=== PATIENT | female | born 1990 | race Caucasian/White ===

== ENCOUNTER 2017-04-12 15:41 | Emergency (ER) | payer OTHER ==
[2017-04-12 15:47] VITALS: BP 132/73; PULSE 122; TEMP 97.8; BMI 37.5
[2017-04-12] MEDS ORDERED: predniSONE 20 MG TABLET (UD) ONE (16:52)
[2017-04-12] MEDS ORDERED: ONDANSETRON *ODT* 4 MG TABLET ONE (16:52)
[2017-04-12] MEDS ORDERED: ALBUTEROL SO4 2.5/IPRATROPIUM 0.5 INH SOL 3 ML VIAL.NEB. NEB ONE ×2 (16:53→16:54)
[2017-04-12] MEDS ORDERED: ONDANSETRON *ODT* 4 MG TABLET SL ONE (16:54)
[2017-04-12] MEDS ORDERED: predniSONE 20 MG TABLET (UD) PO ONE (16:54)
--- NOTE | 2017-04-12 17:35 | PDOC ---
History of Present Illness - General Chief Complaint: Sore Throat Stated Complaint: SORE THROAT, CONGESTION Time Seen by Provider: 04/12/17 16:44 History Source: Patient Exam Limitations: No Limitations - History of Present Illness Initial Comments: 04/12/17 17:30 Patient came in for evaluation of persistent cough, general body aches, sore throat pain ear pain, and some nausea. was seen by her PMD 3 days ago and prescribed amoxicillin for a pharyngitis. Has been taking the dosage but has not improved. Has also been using [id number] medications including NyQuil and DayQuil with minimal resolved. suffers from asthma and has felt wheezing and chest tightness that is progressively worsening. Timing/Duration: 1 week Severity: mild, moderate Associated Symptoms: reports: cough, fever/chills, loss of appetite, malaise Past History - Travel Traveled outside of the country in the last 30 days: No Close contact w/someone who was outside of country & ill: No - Past Medical History Allergies/Adverse Reactions: Allergies Allergy/AdvReac Type Severity Reaction Status Date / Time ciprofloxacin [From Cipro] Allergy Verified 04/12/17 15:47 ciprofloxacin HCl Allergy Verified 04/12/17 15:47 [From Cipro] Home Medications: Ambulatory Orders No Home Medications 0 dose .ROUTE UTDICT 06/27/13 Ondansetron [Zofran *Odt*] 4 mg SL PRN PRN #14 od.tablet 04/12/17 Prednisone [Deltasone -] 20 mg PO BID #8 tablet 04/12/17 Asthma: Yes - Surgical History Abdominal Surgery: No - Reproductive History (#): 1 Para: 0 - Psycho/Social/Smoking Cessation Hx Anxiety: No Suicidal Ideation: No Smoking Status: No Smoking History: Never smoked Have you smoked in the past 12 months: No Number of Cigarettes Smoked Daily: 0 Information on smoking cessation initiated: No Hx Alcohol Use: No Drug/Substance Use Hx: No Substance Use Type: None Review of Systems - Review of Systems Able to Perform ROS?: Yes Is the patient limited [place] proficient: Yes Constitutional: Yes: Symptoms Reported, See HPI, Chills, Malaise, Weakness. No : Fever HEENTM: Yes: See HPI, Nose Congestion. No: Symptoms Reported Respiratory: Yes: Symptoms reported, See HPI, Cough, Wheezing Musculoskeletal: Yes: Symptoms Reported *Physical Exam - Vital Signs Last Vital Signs Temp Pulse Resp BP Pulse Ox 97.8 F 122 H 18 132/73 97 04/12/17 15:45 04/12/17 15:45 04/12/17 15:45 04/12/17 15:45 04/12/17 15:45 - Physical Exam General Appearance: Yes: Nourished, Appropriately Dressed, Apparent Distress, Mild Distress HEENT: positive: MICHAEL, Pharynx Normal, Sinus Tenderness. negative: TMs Normal ( congested but landmarks visualized), Nasal Congestion, Rhinorrhea Neck: positive: Supple. negative: Tender Respiratory/Chest: positive: Lungs Clear, Normal Breath Sounds Cardiovascular: positive: Regular Rate Gastrointestinal/Abdominal: positive: Soft. negative: Tender Musculoskeletal: positive: Normal Inspection Extremity: positive: Normal Capillary Refill, Normal Inspection, Normal Range of Motion Integumentary: positive: Normal Color, Dry, Warm Neurologic: positive: twist packer II-XII NML intact, Fully Oriented, Alert, Normal Mood/ Affect, Normal Response, Motor Strength 02/16 ED Treatment Course - ADDITIONAL ORDERS Additional order review: Laboratory Results 04/12/17 17:00 Urine HCG, Qual Negative - Medications Given in the ED: ED Medications Discontinued Medications Generic Name Dose Route Start Last Admin Trade Name Freq PRN Reason Stop Dose Admin Albuterol/Ipratropium 2 amp 04/12/17 16:54 04/12/17 17:24 Duoneb - NEB 04/12/17 16:55 2 amp ONCE ONE Administration Ondansetron HCl 4 mg 04/12/17 16:54 04/12/17 17:24 Zofran Odt - SL 04/12/17 16:55 4 mg ONCE ONE Administration Prednisone 60 mg 04/12/17 16:54 04/12/17 17:24 Deltasone - PO 04/12/17 16:55 60 mg ONCE ONE Administration Medical Decision Making - Medical Decision Making 04/12/17 18:11 Much improved after 2 DuoNeb's, dose of Zofran, and 60 mg of prednisone. Is ready for discharge *DC/Admit/Observation/Transfer Diagnosis at time of Disposition: Upper respiratory infection Qualifiers: URI type: unspecified viral URI Qualified Code(s): J06.9 - Acute upper respiratory infection, unspecified; B97.89 - Other viral agents as the cause of diseases classified elsewhere - Discharge Dispostion Disposition: HOME Condition at time of disposition: Stable Admit: No - Patient Instructions Printed Discharge Instructions: DI for Asthma -- Adult Additional Instructions: Rest, drink lots of fluids: Teas, water, soups, Pedialyte Saltwater gargles Steamy showers/seem to face break up mucus Avoid contact with others until fevers and cough resolved Lots of handwashing and good hygiene Continue kepn-jhv-[id number] medications for symptomatic relief Tylenol or Motrin for fever and pain Continue albuterol inhaler every 4-6 hours for the next 2 days then as needed for continued cough Prednisone as directed until completed Continue all medications from PMD May use Zofran tab every 8 hours for nausea as needed Followup with private physician in one to 2 days Return to emergency department / pediatric hospital for worsened symptoms, fevers, dehydration - Post Discharge Activity Work/School Note: Back to Work
== END 2017-04-12 18:19 | disposition home or self-care (01) ==
LOC: JERFT 15:41
PROC: 3E0F7GC Introduction of Other Therapeutic Substance into Respiratory Tract, Via Natural or Artificial Opening (ICD-10-PCS; principal; 2017-04-12)
DX: J06.9 Acute upper respiratory infection, unspecified (principal); B97.89 Other viral agents as the cause of diseases classified elsewhere
CPT/HCPCS: 84703; 99281-25

== ENCOUNTER 2017-06-13 15:14 | Emergency (ER) | payer OTHER ==
[2017-06-13 15:21] VITALS: BP 103/74; PULSE 113; TEMP 99.1; BMI 38.2
[2017-06-13 16:40] LABS: BASOPHIL 0.7 % (0-2.0); EOSINOPHIL 1.8 % (0-4.5); MCH 28.3 pg (25.7-33.7); MCHC 33.7 g/dl (32.0-36.0); MEAN CELL VOLUME 83.9 fl (80-96); MEAN PLT VOLUME 8.2 fl (7.5-11.1); NEUTROPHILS 78.4 % (42.8-82.8); PLATELET COUNT 383 K/MM3 (134-434); RDW 14.9 % (11.6-15.6); WHITE BLOOD COUNT 12.8 K/mm3 (4.0-10.0)
--- NOTE | 2017-06-13 16:45 | PDOC ---
History of Present Illness - General Chief Complaint: Vaginal Bleeding Stated Complaint: VAGINAL BLEEDING (6 WKS ) Time Seen by Provider: 06/13/17 16:14 History Source: Patient - History of Present Illness Initial Comments: 06/13/17 17:00 Patient is 27 year old female with a PMH of PETERSON and a self-reported 6 weeks gestation who presents to our facility today c/o acute onset of vaginal bleeding. Patient notes she was at work today when she started to bleed bright red blood with minimally associated abdominal cramping. Patient denies recent trauma, fever, chills, nausea or vomiting. Past History - Past Medical History Allergies/Adverse Reactions: Allergies Allergy/AdvReac Type Severity Reaction Status Date / Time ciprofloxacin [From Cipro] Allergy Verified 06/13/17 15:21 ciprofloxacin HCl Allergy Verified 06/13/17 15:21 [From Cipro] Home Medications: Ambulatory Orders Vits #93/Iron Fum/FA [ Formula Tablet] 1 each PO DAILY Asthma: Yes - Surgical History Abdominal Surgery: No - Reproductive History Is Patient Now?: Yes (#): 2 Para: 0 Cervical CA: No Dysfunctional Uterine Bleeding: No Ectopic : No Endometrial CA: No Polycystic Ovaries: No Therapeutic (s) & number: Yes Tubal Ligation: No Spontaneous : 0 - Psycho/Social/Smoking Cessation Hx Anxiety: No Suicidal Ideation: No Smoking Status: No Smoking History: Never smoked Have you smoked in the past 12 months: No Number of Cigarettes Smoked Daily: 0 Information on smoking cessation initiated: No Hx Alcohol Use: No Drug/Substance Use Hx: No Substance Use Type: None Review of Systems - Review of Systems Constitutional: No: Chills, Fever HEENTM: No: Blurred Vision, Double Vision Respiratory: No: Cough, Orthopnea, Stridor, Wheezing Cardiac (ROS): No: Chest Pain, Lightheadedness, Palpitations ABD/GI: No: Constipated, Diarrhea : No: Burning, Dysuria Neurological: No: Headache All Other Systems: Reviewed and Negative *Physical Exam - Vital Signs Last Vital Signs Temp Pulse Resp BP Pulse Ox 99.1 F 113 H 20 103/74 100 06/13/17 15:18 06/13/17 15:18 06/13/17 15:18 06/13/17 15:18 06/13/17 15:18 - Physical Exam General Appearance: Yes: Nourished, Obese Neck: positive: Trachea midline, Supple Respiratory/Chest: positive: Lungs Clear, Normal Breath Sounds Cardiovascular: positive: Regular Rhythm, Regular Rate, S1, S2 Female Pelvic Exam: positive: vaginal bleeding, other (Pelvic exam significant dark red blood appreciated in vaginal vault, open cervical os) Musculoskeletal: positive: Normal Inspection. negative: CVA Tenderness Extremity: positive: Normal Capillary Refill, Normal Inspection Integumentary: positive: Normal Color, Dry, Warm ED Treatment Course - LABORATORY CBC & Chemistry Diagram: 06/13/17 16:30 06/13/17 16:30 - RADIOLOGY Radiology Studies Ordered: Category Date Time Status TRANSVAGINAL US PREG [US] Stat Ultrasound 06/13/17 16:31 Ordered Medical Decision Making - Medical Decision Making 06/13/17 16:45 Patient is a 27 y.o. female who presents with an acute onset of vaginal bleeding likely associated with a 6 week gestational . On PE patient is hemodynamically stable and does not complain of abdominal pain. Initial differential diagnosis includes spontaneous vs. ectopic PLAN 1. Beta HCG 2. Pelvic Exam 3. Transvaginal U/S 4. CBC, CMP 06/13/17 17:17 Pelvic exam shows significant dark red blood in vaginal vault and open cervical os. CBC significant for leukocytosis (12.8) likely reactive. B-HCG 5,725. 06/13/17 20:[address] Freeman (covering for Dr. Montalvo) patient can be discharged as patient is not actively bleeding and can follow up with Dr. Montalvo in the office tomorrow. Patient discharged with instruction to return to the ED should she experience severe chest pain, shortness of breath, syncope or severe abdominal pain. *DC/Admit/Observation/Transfer Diagnosis at time of Disposition: Spontaneous - Discharge Dispostion Disposition: HOME Condition at time of disposition: Good Admit: No - Referrals Referrals: Greg Blevins MD [Primary Care Provider] - - Patient Instructions Printed Discharge Instructions: DI for Miscarriage, Dealing With Miscarriage Additional Instructions: You have been evaluated today in the Emergency Department for a likely miscarriage. Please see your grey goods examiner, Dr. Montalvo, tomorrow for further evaluation. In the interim, please return to the ED should you have shortness of breath, severe chest pain, or severe abdominal pain.
[2017-06-13 17:07] LABS: URINE APPEARANCE SLCLOUDY; URINE BILIRUBIN NEGATIVE (NEGATIVE); URINE BLOOD 3+ (NEGATIVE); URINE COLOR YELLOW; URINE GLUCOSE (UA) NEGATIVE (NEGATIVE); URINE KETONE NEGATIVE (NEGATIVE); URINE LEUK ESTERASE NEGATIVE (NEGATIVE); URINE NITRITE NEGATIVE (NEGATIVE); URINE PROTEIN NEGATIVE (NEGATIVE); URINE UROBILINOGEN NEGATIVE mg/dL (0.2-1.0)
[2017-06-13 17:11] LABS: URINE MUCUS FEW; URINE RBC 1 /hpf (0-3); URINE WBC <1 /hpf (3-5)
[2017-06-13 18:28] LABS: ALK PHOS 80 U/L (45-117); ANION GAP 9 (8-16); BILIRUBIN,TOTAL 0.5 mg/dL (0.2-1.0); CO2 27 mmol/L (21-32); CREATININE 0.6 mg/dL (0.55-1.02); GLUCOSE,RANDOM 96 mg/dL (74-106); SGOT/AST 12 U/L (15-37); SGPT/ALT 33 U/L (12-78); TOT PROT 7.5 g/dl (6.4-8.2)
[2017-06-13] MEDS ORDERED: SODIUM CHLORIDE 1,000 ML IV STA (19:26)
--- NOTE | 2017-06-13 20:04 | PDOC ---
Attending Attestation - Resident Resident Name: Farheen Lorenzo - ED Attending Attestation I have performed the following: I have examined & evaluated the patient, The case was reviewed & discussed with the resident, I agree w/resident's findings & plan, Exceptions are as noted - HPI HPI: Patient is a 27-year-old female, 3 para 0 at 6 weeks gestation who presents to the ER with vaginal bleeding for one day. Patient denies abdominal pain/shortness of breath/palpitations/lightheadedness prior to arrival. - Physicial Exam PE: 06/13/17 20:02 Patient is awake and alert, well-appearing, mildly tachycardic initial evaluation. Pelvic exam performed by Dr. Lorenzo reveals blood and clots in the vaginal vault, and os open to fingertip. - Medical Decision Making 06/13/17 20:03 Patient is a 27-year-old female, 3 para 0 at 6 weeks gestation presents with vaginal bleeding. Differential diagnoses includes ectopic versus threatened AB versus incomplete AB versus inevitable AB. Beta-hCG is noted to be 5700. Transvaginal ultrasound shows a gestational sac without FH. No adnexal masses are noted. There is no free fluid. Findings are likely consistent with incomplete AB. Will discuss with [facility]PECT[facility]. Likely discharge with follow-up in 48 hours for repeat beta-hCG and repeat ultrasound.
== END 2017-06-13 21:09 | disposition home or self-care (01) ==
LOC: JER 15:14
PROC: 3E0337Z Introduction of Electrolytic and Water Balance Substance into Peripheral Vein, Percutaneous Approach (ICD-10-PCS; principal; 2017-06-13)
DX: O03.4 Incomplete spontaneous abortion without complication (principal); Z3A.01 Less than 8 weeks gestation of pregnancy
CPT/HCPCS: 36415; 76817-TC; 80053; 81003; 81015; 84702; 84703; 85025; 86850; 86900; 86901; 99283-25

== ENCOUNTER 2018-11-02 10:40 | Emergency (ER) | payer OTHER ==
[2018-11-02 10:46] VITALS: BP 141/82; PULSE 109; TEMP 98.5; BMI 34.1
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
== END 2018-11-02 11:30 | disposition home or self-care (01) ==
LOC: JERFT 10:40
PROC: 2W3RXYZ Immobilization of Left Lower Leg using Other Device (ICD-10-PCS; principal; 2018-11-02)
DX: S83.8X2A Sprain of other specified parts of left knee, initial encounter (principal); X50.1XXA Overexertion from prolonged static or awkward postures, initial encounter; Y35.811A Legal intervention involving manhandling, law enforcement official injured, initial encounter; Y93.89 Activity, other specified; Y92.89 Other specified places as the place of occurrence of the external cause; Y99.0 Civilian activity done for income or pay
CPT/HCPCS: 99281-25

== ENCOUNTER 2020-09-02 08:22 | Emergency (ER) | payer BC, OTHER ==
[2020-09-02 08:30] VITALS: BP 139/95; PULSE 110; TEMP 97.9; BMI 34.9
[2020-09-02] MEDS ORDERED: ALBUTEROL SO4 2.5/IPRATROPIUM 0.5 INH SOL 3 ML VIAL.NEB. NEB ONE (09:04)
[2020-09-02] MEDS ORDERED: ALBUTEROL SO4 0.083% IH SOL 2.5 MG/3 ML VIAL.NEB. NEB ONE ×2 (09:14→09:22)
== END 2020-09-02 10:05 | disposition home or self-care (01) ==
LOC: JER 08:22
PROC: 3E0F7GC Introduction of Other Therapeutic Substance into Respiratory Tract, Via Natural or Artificial Opening (ICD-10-PCS; principal; 2020-09-02)
DX: J06.9 Acute upper respiratory infection, unspecified (principal)
CPT/HCPCS: 71046-TC-FY; 99283-25

== ENCOUNTER 2020-11-04 08:44 | Emergency (ER) | payer OTHER ==
[2020-11-04 08:57] VITALS: BP 108/69; PULSE 104; BMI 34.7
[2020-11-04 09:51] LABS: BASO % 0.8 % (0-2.0); EOS % 2.5 % (0-4.5); HEMATOCRIT 39.5 % (32.4-45.2); HEMOGLOBIN 13.6 GM/dL (10.7-15.3); LYMPH % 19.6 % (8-40); MCH 28.1 pg (25.7-33.7); MCHC 34.4 g/dl (32.0-36.0); MEAN CELL VOLUME 81.7 fl (80-96); MEAN PLT VOLUME 7.9 fl (7.5-11.1); MONO % 8.7 % (3.8-10.2); NEUT % 68.4 % (42.8-82.8); PLATELET COUNT 424 K/MM3 (134-434); RBC 4.84 M/mm3 (3.60-5.2); RDW 15.1 % (11.6-15.6); WHITE BLOOD COUNT 7.9 K/mm3 (4.0-10.0)
[2020-11-04 10:00] LABS: CHLORIDE 104 mmol/L (98-107); SODIUM 137 mmol/L (136-145)
[2020-11-04 10:03] LABS: ALBUMIN 3.8 g/dl (3.4-5.0); ANION GAP 5 MMOL/L (8-16); CALCIUM 8.8 mg/dL (8.5-10.1); CO2 29 mmol/L (21-32); GLUCOSE,RANDOM 80 mg/dL (74-106)
[2020-11-04 10:05] LABS: SGPT/ALT 45 U/L (13-61)
[2020-11-04 10:06] LABS: SGOT/AST 15 U/L (15-37)
[2020-11-04 10:07] LABS: BILIRUBIN,TOTAL 0.6 mg/dL (0.2-1); CREATININE 0.7 mg/dL (0.55-1.3); TOT PROT 7.7 g/dl (6.4-8.2)
[2020-11-04 10:08] LABS: ALK PHOS 68 U/L (45-117)
== END 2020-11-04 10:32 | disposition home or self-care (01) ==
LOC: JER 08:44
DX: R07.1 Chest pain on breathing (principal); J45.20 Mild intermittent asthma, uncomplicated
CPT/HCPCS: 36415; 71046-TC-FY; 80053; 82550; 84484; 84703; 85025; 93005; 93010; 99285-25

== ENCOUNTER 2021-05-28 23:03 | Emergency (ER) | payer OTHER ==
[2021-05-28 23:09] VITALS: BMI 35.7
[2021-05-29 00:04] VITALS: BP 122/71; PULSE 102; TEMP 98.5
[2021-05-29 01:45] LABS: BASO % 0.7 % (0-2.0); EOS % 0.1 % (0-4.5); HEMATOCRIT 35.8 % (32.4-45.2); LYMPH % 10.7 % (8-40); MCH 27.8 pg (25.7-33.7); MCHC 33.7 g/dl (32.0-36.0); MEAN CELL VOLUME 82.7 fl (80-96); MEAN PLT VOLUME 8.3 fl (7.5-11.1); MONO % 7.6 % (3.8-10.2); NEUT % 80.9 % (42.8-82.8); PLATELET COUNT 476 10^3/uL (134-434); RBC 4.33 M/mm3 (3.60-5.2); RDW 14.9 % (11.6-15.6); WHITE BLOOD COUNT 20.6 K/mm3 (4.0-10.0)
[2021-05-29 02:03] LABS: ALBUMIN 3.7 g/dl (3.4-5.0); BLOOD UREA NITROGEN 17.3 mg/dL (7-18)
[2021-05-29] MEDS ORDERED: MAGNESIUM SULF 50% (8.12 MEQ/2 ML-1 GM VIAL) IVPB ONE (02:04)
[2021-05-29] MEDS ORDERED: DEXAMETHASONE 4 MG TABLET (FP) PO ONE (02:04)
[2021-05-29] MEDS ORDERED: IBUPROFEN 600 MG TABLET (FP) PO ONE ×2 (02:05→02:46)
[2021-05-29 02:06] LABS: CREATININE 0.7 mg/dL (0.55-1.3)
[2021-05-29 02:07] LABS: TOT PROT 8.1 g/dl (6.4-8.2)
[2021-05-29 02:09] LABS: BILIRUBIN,TOTAL 0.9 mg/dL (0.2-1)
[2021-05-29 02:23] LABS: CALCIUM 8.4 mg/dL (8.5-10.1)
[2021-05-29] MEDS ORDERED: AZITHROMYCIN IVPB 500 MG in DEXTROSE 5%-WATER - 250 ML IVPB ONE (02:39)
[2021-05-29] MEDS ORDERED: MAGNESIUM SULF 50% (8.12 MEQ/2 ML-1 GM VIAL) ONE (02:46)
[2021-05-29] MEDS ORDERED: DEXAMETHASONE 4 MG TABLET (FP) ONE (02:46)
[2021-05-29] MEDS ORDERED: AZITHROMYCIN IVPB 500 MG/250 ML BAG IVPB ONE (02:46)
[2021-05-29 05:06] LABS: ANISOCYTOSIS 0; HELMET CELLS 0; HOWELL-JOLLY BODIES 0; MACROCYTOSIS 0; OVALOCYTE 0; PLATELET ESTIMATE NORMAL; ROULEAU 0; SICKELED CELLS 0; TARGET CELLS 0; TEAR DROP CELLS 0; TOXIC GRANULATION 0
== END 2021-05-29 03:41 | disposition home or self-care (01) ==
LOC: JER 23:03
PROC: 3E033NZ Introduction of Analgesics, Hypnotics, Sedatives into Peripheral Vein, Percutaneous Approach (ICD-10-PCS; principal; 2021-05-28)
PROC: 3E033GC Introduction of Other Therapeutic Substance into Peripheral Vein, Percutaneous Approach (ICD-10-PCS; 2021-05-28)
DX: J18.9 Pneumonia, unspecified organism (principal)
CPT/HCPCS: 36415; 71046-TC-FY; 80053; 84132; 84484; 84703; 85025; 85379; 93005; 93010; 99285-25

== ENCOUNTER 2022-01-26 07:29 | Emergency (ER) | payer OTHER ==
[2022-01-26 07:40] VITALS: BMI 30.7
[2022-01-26] MEDS ORDERED: ONDANSETRON 4 MG TABLET PO ONE (07:56)
[2022-01-26] MEDS ORDERED: ACETAMINOPHEN 500 MG TABLET (FP) PO ONE (07:56)
[2022-01-26] MEDS ORDERED: ACETAMINOPHEN 325 MG TABLET (FP) ONE (08:12)
[2022-01-26] MEDS ORDERED: ONDANSETRON *ODT* 4 MG TABLET ONE (08:12)
[2022-01-26 08:46] VITALS: BP 138/88; PULSE 88; TEMP 98.8
== END 2022-01-26 08:48 | disposition home or self-care (01) ==
LOC: JER 07:29
DX: K62.5 Hemorrhage of anus and rectum (principal); K64.4 Residual hemorrhoidal skin tags
CPT/HCPCS: 36415; 82272; 99285-25

== ENCOUNTER 2022-06-01 16:24 | Emergency (ER) | payer OTHER ==
[2022-06-01 16:57] VITALS: BP 120/84; PULSE 108; RESP 22; TEMP 98.2; BMI 35.7
[2022-06-01] MEDS ORDERED: ONDANSETRON *ODT* 4 MG TABLET SL ONE (17:33)
[2022-06-01] MEDS ORDERED: ONDANSETRON *ODT* 4 MG TABLET ONE (17:40)
[2022-06-01] MEDS ORDERED: ACETAMINOPHEN 500 MG TABLET (FP) PO ONE (17:47)
== END 2022-06-01 17:55 | disposition home or self-care (01) ==
LOC: JER 16:24
DX: J20.9 Acute bronchitis, unspecified (principal)
CPT/HCPCS: 99283-25; Q0162

== ENCOUNTER 2023-07-17 16:10 | Emergency (ER) | payer OTHER ==
[2023-07-17 16:29] VITALS: BP 110/76; PULSE 97; RESP 16; TEMP 98.2; BMI 32.4
[2023-07-17] MEDS ORDERED: IBUPROFEN 400 MG TABLET (FP) PO ONE (18:49)
== END 2023-07-17 19:03 | disposition home or self-care (01) ==
LOC: FER 16:10
DX: H57.12 Ocular pain, left eye (principal); S05.02XA Injury of conjunctiva and corneal abrasion without foreign body, left eye, initial encounter; X58.XXXA Exposure to other specified factors, initial encounter
CPT/HCPCS: 99282-25

== ENCOUNTER 2024-06-02 01:25 | Emergency (ER) | payer OTHER ==
[2024-06-02 01:34] VITALS: BP 122/82; PULSE 72; RESP 17; TEMP 98.4; BMI 32.4
[2024-06-02] MEDS ORDERED: SUMATRIPTAN SUCCINATE 6 MG/0.5 ML VIAL ONE (01:35)
[2024-06-02] MEDS: SUMATRIPTAN SUCCINATE 6 MG/0.5 ML VIAL SQ ONE (01:55)
[2024-06-02] MEDS: SODIUM CHLORIDE 0.9% 500 ML INFUS.BAG IV ONE (02:05)
[2024-06-02 02:59] LABS: EOS % 2.8 % (0-4.5); HEMATOCRIT 35.4 % (32.4-45.2); HEMOGLOBIN 11.7 GM/dL (10.7-15.3); MCH 25.4 pg (25.7-33.7); MCHC 32.9 g/dl (32.0-36.0); MEAN CELL VOLUME 77.2 fl (80-96); MEAN PLT VOLUME 8.2 fl (7.5-11.1); MONO % 6.5 % (3.8-10.2); NEUT % 68.7 % (42.8-82.8); PLATELET COUNT 386 10^3/uL (134-434); RBC 4.58 M/mm3 (3.60-5.2); RDW 16.4 % (11.6-15.6)
[2024-06-02 03:31] LABS: POTASSIUM 3.9 mmol/L (3.5-5.1)
[2024-06-02 03:33] LABS: CALCIUM 8.8 mg/dL (8.5-10.1)
[2024-06-02 03:34] LABS: ALBUMIN 3.7 g/dl (3.4-5.0); BLOOD UREA NITROGEN 10.8 mg/dL (7-18)
[2024-06-02 03:37] LABS: CREATININE 0.6 mg/dL (0.55-1.3)
[2024-06-02 03:38] LABS: BILIRUBIN,TOTAL 0.6 mg/dL (0.2-1); TOT PROT 6.9 g/dl (6.4-8.2)
== END 2024-06-02 04:24 | disposition home or self-care (01) ==
LOC: FER 01:25
PROC: 3E013GC Introduction of Other Therapeutic Substance into Subcutaneous Tissue, Percutaneous Approach (ICD-10-PCS; principal; 2024-06-02)
DX: R51.9 Headache, unspecified (principal)
CPT/HCPCS: 36415; 80053; 85025; 99284-25

== ENCOUNTER 2024-06-18 13:37 | Emergency (ER) | payer OTHER ==
[2024-06-18 13:50] VITALS: BP 107/77; PULSE 93; RESP 16; TEMP 99.3; BMI 31.6
[2024-06-18 14:08] LABS: HCG,QUALITATIVE URINE Negative
[2024-06-18 14:26] LABS: URINE MUCUS FEW
[2024-06-18] MEDS ORDERED: ACETAMINOPHEN 325 MG TABLET (FP) ONE (14:38)
[2024-06-18] MEDS: ACETAMINOPHEN 325 MG TABLET (FP) PO ONE (14:40)
[2024-06-18 15:24] LABS: HEMATOCRIT 37.3 % (32.4-45.2); HEMOGLOBIN 11.6 G/dL (10.7-15.3); MCH 24.4 pg (25.7-33.7); MEAN CELL VOLUME 78.5 fl (80-96); MEAN PLT VOLUME 8.5 fl (7.5-11.1); PLATELET COUNT 420.8 10^3/uL (134-434); RBC 4.75 10^6/uL (3.60-5.2); RDW 17.3 % (11.6-15.6); WHITE BLOOD COUNT 11.1 10^3/uL (4.0-10.8)
[2024-06-18 15:27] LABS: PLATELET ESTIMATE ADEQUATE
[2024-06-18 15:45] LABS: ALBUMIN 4.2 g/dl (3.4-5.0); BILIRUBIN,TOTAL 0.5 mg/dl (0.2-1); CALCIUM 9.5 mg/dl (8.5-10.1); CREATININE 0.7 mg/dl (0.6-1.3); TOT PROT 7.2 g/dl (6.4-8.2)
== END 2024-06-18 17:44 | disposition home or self-care (01) ==
LOC: FER 13:37
DX: N39.0 Urinary tract infection, site not specified (principal); N83.202 Unspecified ovarian cyst, left side; R10.32 Left lower quadrant pain; R10.2 Pelvic and perineal pain; R35.0 Frequency of micturition
CPT/HCPCS: 36415; 76830-TC; 80053; 81003; 81015; 84703; 85027; 87086; 99284-25

== ENCOUNTER 2025-07-31 11:43 | Emergency (ER) | payer BC, OTHER ==
[2025-07-31 11:52] VITALS: BP 106/74; PULSE 100; RESP 18; TEMP 98.1; BMI 27.6
[2025-07-31] MEDS ORDERED: ACETAMINOPHEN 500 MG TABLET (FP) ONE (12:31)
[2025-07-31 12:40] LABS: URINE APPEARANCE CLOUDY; URINE BILIRUBIN 1+ (NEGATIVE); URINE COLOR DK YELLOW; URINE GLUCOSE (UA) NEGATIVE (NEGATIVE); URINE KETONE TRACE (NEGATIVE)
[2025-07-31 12:41] LABS: URINE LEUK ESTERASE TRACE (NEGATIVE); URINE NITRITE NEGATIVE (NEGATIVE); URINE PROTEIN 1+ (NEGATIVE); URINE UROBILINOGEN 1.0 mg/dL (0.2-1.0)
[2025-07-31 12:44] LABS: EPI CELLS >36 /uL (0-25.1); HYALINE CASTS 5 /uL (0-3.1); URINE BACTERIA 1968 /uL (0-1359); URINE WBC 96 /uL (0-25.8)
[2025-07-31 12:46] LABS: URINE RBC 185.3 /uL (0-23.9)
[2025-07-31] MEDS: ACETAMINOPHEN 500 MG TABLET (FP) PO ONE (13:22)
[2025-07-31 14:17] LABS: URINE COLOR YELLOW
[2025-07-31 14:18] LABS: URINE APPEARANCE CLOUDY; URINE BILIRUBIN NEGATIVE (NEGATIVE); URINE GLUCOSE (UA) NEGATIVE (NEGATIVE); URINE KETONE TRACE (NEGATIVE); URINE LEUK ESTERASE NEGATIVE (NEGATIVE); URINE NITRITE NEGATIVE (NEGATIVE); URINE PROTEIN TRACE (NEGATIVE); URINE UROBILINOGEN 0.2 mg/dL (0.2-1.0)
[2025-07-31] MEDS ORDERED: NITROFURANTOIN MACROCRYSTAL 50 MG CAPSULE (FP) ONE (15:07)
[2025-07-31] MEDS: NITROFURANTOIN MONOHYD/M-CRYST 100 MG CAPSULE PO ONE (15:10)
== END 2025-07-31 15:13 | disposition home or self-care (01) ==
LOC: JER 11:43
DX: N83.202 Unspecified ovarian cyst, left side (principal); N39.0 Urinary tract infection, site not specified; R39.15 Urgency of urination; R35.0 Frequency of micturition; R10.24 Suprapubic pain
CPT/HCPCS: 76830-TC; 81003; 84703; 87086; 99284-25